=== PATIENT | male | born 1960 | race Caucasian/White ===

== ENCOUNTER 2016-10-17 21:14 | Emergency (ER) | payer OTHER ==
[~2016-10-17 21:14] MED LIST: CETIRIZINE; GLUCCHONDR PO; LORTAB10 PO; PERCOCET1 TA4 PO; PRILO PO; SUDAFED PE10 MG OR; SUDAFED PO; TRAZ100 PO; VASOTEC10 PO; [UNRECOGNIZED DRUG - OTHER]
[2016-10-17 21:41] LABS: BASOPHILS 0.1 %; BASOPHILS ABSOLUTE 0.02 10/3/uL (0.0-0.16); EOSINOPHILS 0.3 %; EOSINOPHILS ABSOLUTE 0.06 10/3/uL (0.0-0.53); ER CBC TAT 0 Hrs 05 Mins; HEMATOCRIT 44.2 % (40.0-51.0); HEMOGLOBIN 15.4 g/dL (13.6-17.8); IMMATURE GRANULOCYTES 0.3 %; IMMATURE GRANULOCYTES ABSOLUTE 0.05 10/3/uL (0.0-0.11); LYMPHOCYTES 7.2 %; LYMPHOCYTES ABSOLUTE 1.25 10/3/uL (0.67-4.30); MANUAL DIFF NO %; MEAN CORPUS HGB CONC 34.8 g/dL (32.0-36.0); MEAN CORPUSCULAR VOLUME 91.7 fL (80-100); MEAN PLATELET VOLUME 10.2 fL (9.2-13.0); MONOCYTES 5.3 %; MONOCYTES ABSOLUTE 0.91 10/3/uL (0.21-1.20); NEUTROPHILS 86.8 %; NEUTROPHILS ABSOLUTE 15.03 10/3/uL (2.02-8.40); PLATELET COUNT 288 10/3/uL (150-400); RBC DISTRIBUTION WIDTH 13.3 % (12.0-16.0); RED CELL COUNT 4.82 10/6/uL (4.7-6.1); WHITE BLOOD CELLS 17.3 10/3/uL (4.5-10.5)
[2016-10-17 21:53] LABS: ASCORBIC ACID (UR NOT ORDER) NEG (NEG); BILIRUBIN, URINE NEGATIVE (NEG); ER URINALYSIS TAT 0 Hrs 14 Mins; KETONE, URINE TRACE MG/DL (NEG); LEUKOCYTE ESTERASE(NOT OR NEG (NEG); NITRITE (URINE) NEG (NEG); WBC (NOT ORDERED) (RFLEX) 2 (0-5)
[2016-10-17 21:57] LABS: A/G RATIO 1.1 (0.7-1.9); ALBUMIN 3.9 G/DL (3.5-5.0); CALCIUM, SERUM 8.6 MG/DL (8.5-10.4); CHLORIDE, SERUM 105 MMOL/L (96-112); CO2 (CARBON DIOXIDE) 29 MMOL/L (24-34); GLOBULIN 3.5 G/DL (2.5-4.1); SGOT(AST) 28 U/L (5-40); SGPT(ALT) 43 U/L (5-65); SODIUM, SERUM 141 MMOL/L (135-148); TOTAL BILIRUBIN 0.5 MG/DL (0-1.2); TOTAL PROTEIN 7.4 G/DL (6.0-8.5)
[2016-10-17 21:58] LABS: ALKALINE PHOSPHATASE 142 U/L (45-117); BUN (BLOOD UREA NITROGEN) 21 MG/DL (6-23); CREATININE 1.87 MG/DL (0.70-1.30); GFR AFRICAN AMERICAN 45 ML/MIN (>=60); GFR NON AFRICAN AMERICAN 39 ML/MIN (>=60); GLUCOSE, SERUM 175 MG/DL (60-99)
[2016-10-18] MEDS ORDERED: NORCO1 TAB PO (19:41)
[2016-10-18] MEDS ORDERED: FLOMAX4 PO (19:42)
[2016-10-18] MEDS ORDERED: ZOFRAN4 PO (19:43)
[2016-10-18] MEDS ORDERED: NORV5 PO (19:44)
[2016-10-18] MEDS ORDERED: FORTAMET1000 MG PO (19:45)
[2016-10-18] MEDS ORDERED: BEN25 PO (19:45)
[2016-10-18] MEDS ORDERED: AT25 PO (19:46)
[2016-10-18] MEDS ORDERED: CYMBALTA30 PO (19:47)
[2016-10-18] MEDS ORDERED: TRAZODONE150 MG PO (19:47)
[2016-10-18] MEDS ORDERED: PRILO PO (19:47)
[2016-10-18] MEDS ORDERED: TYLENOL PM PO (19:50)
[2016-10-18] MEDS ORDERED: LINZESS 290 M290 MCG PO (19:51)
== END 2016-10-17 23:00 | disposition home or self-care (01) ==
LOC: ER 21:14
PROVIDERS: Nurse Practitioner
DX: N13.2 Hydronephrosis with renal and ureteral calculous obstruction (principal); D72.829 Elevated white blood cell count, unspecified; E11.65 Type 2 diabetes mellitus with hyperglycemia; I10 Essential (primary) hypertension; K21.9 Gastro-esophageal reflux disease without esophagitis; Z87.442 Personal history of urinary calculi; Z88.6 Allergy status to analgesic agent; Z79.899 Other long term (current) drug therapy
CPT/HCPCS: 74176; 80053; 81001; 85025; 96374; 99285; J1170; J2405

== ENCOUNTER 2016-10-18 19:50 | Inpatient (IN) | payer OTHER ==
--- NOTE | ~2016-10-18 | CN ---
Consultation Report [facility] [address] [place]. [address] NAME: SCOTTY TRUJILLO : 58 STATUS : ADM IN PAT#: [id number] AGE: 56 ADM/REG DATE : 10/18/16 MR#: [id number] REPORT SERV DATE: 10/19/16 DICTATED BY: NELLY ZAMAN DATE: 10/19/16 REPORT STATUS : Draft TRANSCRIBED BY: MODL DATE: 10/19/16 CONSULTATION DATE OF CONSULTATION: 10/19/2016 CHIEF COMPLAINT: Right flank pain. HISTORY OF PRESENT ILLNESS: Mr. Trujillo is a 56-year-old, who had acute onset of right flank pain on Friday. Seen in the emergency room and discharged to home. He was diagnosed with a small right distal ureteral stone. He has had nausea, vomiting, flank pain, poor appetite, and worsening difficulty with breathing. He came back to the emergency room extremely lethargic/unarousable. He does admit to feeling warm, but no fevers or chills. He is diabetic and has had poorly controlled blood sugar for the last week or so. PAST MEDICAL HISTORY: Diabetes, kidney stone, BPH, stroke, GERD, basal cell skin cancer removal. ALLERGIES: IBUPROFEN. SOCIAL HISTORY: , lives in [place], [place]. He smokes cigarettes. No alcohol or illicit drugs. 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 FAMILY HISTORY: No family history of malignancy. Strong family history of rheumatoid arthritis. HOME MEDICATIONS: Norvasc, Benadryl, Cymbalta, hydrocodone, hydroxyzine, Linzess, metformin, Prilosec, Flomax, and trazodone. PHYSICAL EXAMINATION: VITAL SIGNS: Blood pressure 127/84, temperature 97.4, pulse 81, respirations 16. GENERAL: Ill-appearing, 56-year-old, appearing older than stated age, in no acute distress. HEENT: Sclerae anicteric. LUNGS: Clear. HEART: Regular rhythm. CHEST: Clear anteriorly. He is wearing a non-rebreather with mildly labored breathing. ABDOMEN: Soft, nontender, and nondistended. No palpable mass. No rebound or guarding. Dsnp-hg-[id number] right CVA tenderness. No left CVA tenderness. : Testes normally descended bilaterally. No inguinal hernia. EXTREMITIES: No lower extremity edema. SKIN: No skin lesions. LABORATORY DATA: Voided urine shows red cells, rare bacteria. Negative nitrites or leukocytes. Procalcitonin is 11.5. Creatinine is 2.42 this morning, it was 1.8 two days ago at the ER, and it was 0.77 a month ago. Consultation Report [place] [id number] [place]. [address] NAME: SCOTTY TRUJILLO : 58 STATUS : ADM IN PAT#: [id number] AGE: 56 ADM/REG DATE : 10/18/16 MR#: [id number] REPORT SERV DATE: 10/19/16 DICTATED BY: NELLY ZAMAN DATE: 10/19/16 REPORT STATUS : Draft TRANSCRIBED BY: BONILLA DATE: 10/19/16 IMAGING: CT scan from last night shows large patchy infiltrates in right middle lobe, as well as persistent ehfammnj-ys-iojoai right hydroureteronephrosis with a ureterovesical junction calculus. No other stone seen. Small umbilical hernia, normal appendix. IMPRESSION: 1. Right ureteral stone. 2. Sepsis. 3. Pneumonia. 4. Acute kidney injury. PLAN: I have recommended proceeding to the operating for cystoscopy, right retrograde pyelogram, right ureter stent placement and stone removal, it is only if there is no grossly purulent urine in the kidney. Risks of bleeding, infection, need for 2nd procedure and pain from the postop stent was discussed. He will be admitted to the ICU or IMCU postop given his pulmonary status. DAE/BONILLA Nelly Zaman M.D. / [id number] CC: Nain Smyth MD
--- NOTE | ~2016-10-18 | CN ---
Consultation Report [facility] [address] [place]. [address] NAME: SCOTTY TRUJILLO : 58 STATUS : ADM IN [facility]#: [id number] AGE: 56 ADM/REG DATE : 10/18/16 MR#: [id number] REPORT SERV DATE: 10/19/16 DICTATED BY: ANAM GROVES IV DATE: 10/19/16 REPORT STATUS : Draft TRANSCRIBED BY: MODCristina DATE: 10/19/16 CRITICAL CARE CONSULTATION DATE OF CONSULTATION: 10/18/2016 Date evaluation, dictation, and transferred to the fruit and vegetable packer team is 10/18/2016. REASON FOR TRANSFER: Urosepsis with hypercapnic hypoxemic respiratory failure requiring BiPAP. HISTORY OF PRESENT ILLNESS: History was obtained from the records and from the patient. Mr. Trujillo is a 56-year-old male with a history of hypertension, depression, diabetes mellitus, cerebrovascular disease, reflux disease, and nephrolithiasis, who is now status post ureteral stent placement with preoperative hypotension responsive to fluids and hypercapnic hypoxemic respiratory failure. The patient developed right lower quadrant pain for which he presented to the emergency room. He was initially given some IV fluids and pain medications with improvement. The symptoms worsened particularly when he took some narcotic medications from his and became extremely lethargic. He was brought to the emergency room where he now had some pulmonary infiltrates with evidence for the kidney stone. His white count was now elevated. Urology was consulted and he underwent right ureteral stent with stone extraction. Blood gases demonstrated hypercapnia and hypoxemia for which he was placed on BiPAP. He required a very transient period of Adriel-Synephrine at the time of his surgical procedure by Anesthesiology. Currently, blood pressure is adequate though he remains somewhat lethargic now on BiPAP therapy with adequate oxygen saturations. The patient is not on bronchodilator medication nor is he on supplemental oxygen at home. He denies chronic cough, sputum production, fevers, chills, sweats, hemoptysis, and had no symptoms of a respiratory infection prior to presentation. The patient reportedly snores. His sleep is nonrestorative, and he complains of sedentary hypersomnolence. PULMONARY HISTORY: Remarkable for no history of childhood asthma, known adult obstructive lung disease, or previous pneumonia. He is a 56-eixn-jcsz smoker, having quit 5 years ago. He is up-to-date on the seasonal influenza vaccine. PAST MEDICAL HISTORY: 1. Hypertension. 2. Depression. 3. Diabetes mellitus. 4. Nephrolithiasis. 5. Cerebrovascular disease noted on CT scan. 6. Reflux disease. PAST SURGICAL HISTORY: 1. Right neck surgery. Consultation Report [place] [id number] [place]. [address] NAME: SCOTTY TRUJILLO : 58 STATUS : ADM IN [facility]#: [id number] AGE: 56 ADM/REG DATE : 10/18/16 MR#: [id number] REPORT SERV DATE: 10/19/16 DICTATED BY: ANAM GROVES IV DATE: 10/19/16 REPORT STATUS : Draft TRANSCRIBED BY: BONILLA DATE: 10/19/16 2. Skin cancer removal. 3. Left shoulder rotator cuff. ALLERGIES: THE PATIENT IS INTOLERANT OF IBUPROFEN. CURRENT MEDICATIONS: Desyrel 150 mg daily, Flomax 0.4 mg daily, heparin 5000 units q.8 hours, Levemir 8 units twice a day, level 3 insulin sliding scale, Protonix 40 mg daily, vancomycin per Pharmacy, and Zosyn 3.375 g q.8 hours. SOCIAL HISTORY: Remarkable for the previous tobacco use as above. There is no alcohol or illicit drug use. He is and has two children. FAMILY HISTORY: Remarkable for father with coronary artery disease, diabetes and unspecified cancer. Mother with stroke, diabetes, and unspecified cancer. Sibling with rheumatoid arthritis. REVIEW OF SYSTEMS: 14-systems reviewed. Pertinent positives as noted above. PHYSICAL EXAMINATION: GENERAL: This is a late middle-aged male, somewhat lethargic, appearing older than his stated age, in no distress on BiPAP. VITAL SIGNS: Temperature is 97.4, pulse is 90, respiratory rate is 24, saturations are 99% on BiPAP at 60%, and blood pressure 127/84. HEENT: The patient is normocephalic, atraumatic. Extraocular movements are intact. Pupils react to light. Sclerae and conjunctivae normal. He has a Mallampati III airway with poor dentition with missing teeth and gingival disease. NECK: Without any palpable lymphadenopathy or thyromegaly. He has surgical scars noted. CHEST: The patient has some inspiratory crackles at both bases. There is a prolonged expiratory phase with some scattered rhonchi that improved with cough. No true wheezes are noted. CARDIOVASCULAR: Jugular venous pulsations appear to be approximately 7 cm. He has 2+ carotid upstrokes. No obvious bruit. He has a regular distant S1, S2 with no clear murmur or S3. Peripheral pulses are diminished. ABDOMEN: Soft and nontender. There are hypoactive bowel sounds. There is no palpable hepatosplenomegaly or masses. GENITOURINARY: The patient has normal male external genitalia. Jeong catheter in place. EXTREMITIES: Demonstrate no cyanosis, clubbing, edema, or palpable cords. NEUROLOGIC: The patient currently is able to move all extremities. Strength is 5/5 and sensation intact to light touch. LABORATORY DATA: Chest x-ray demonstrates patchy infiltrates, right greater than left that were present on the film though not on a film from 2013. CBC: Hemoglobin 12.7, hematocrit 37.6, platelet count was 212,000, white cell count is 8.8. Consultation Report [address] [place]. [address] NAME: SCOTTY TRUJILLO : 58 STATUS : ADM IN [facility]#: [id number] AGE: 56 ADM/REG DATE : 10/18/16 MR#: [id number] REPORT SERV DATE: 10/19/16 DICTATED BY: ANAM GROVES IV DATE: 10/19/16 REPORT STATUS : Draft TRANSCRIBED BY: BONILLA DATE: 10/19/16 INR is 1.3, PTT is 37.5, procalcitonin level 11.5. Sodium is 145, potassium 4.3, chloride 110, bicarbonate 17, BUN 37, creatinine 2.42, glucose of 138, magnesium is 1.9. Troponin is 0.26. Blood gas shows pH 7.34, pCO2 of 41, pO2 of 93, with a previous pCO2 of 53. ASSESSMENT/PLAN: 1. Infectious Disease. The patient likely has urosepsis as the cause for his hypotension. He will remain on his broad coverage with Zosyn and vancomycin and pending culture results. Procalcitonin level is significantly elevated. Repeat urinalysis and culture have been sent. 2. Cardiovascular. The patient will be given IV fluids, would be decreased with more than 3 L positive at this time. Levophed could be started if required. BNP was not elevated. There is an insignificant bump in the troponin with no ischemic symptoms. 3. Respiratory. The patient may have some underlying chronic obstructive pulmonary disease. This is likely drug related with use of the narcotics. He will be given BiPAP overnight and as needed. He clinically has obstructive sleep apnea and will require an outpatient sleep evaluation. I will put him on DuoNebs while awake with Pulmicort and Brovana for now with a possible component of chronic obstructive pulmonary disease with his previous tobacco use. 4. Endocrinologic. Cortisol level will be obtained with the hypotension. He will be given low-dose Levemir with insulin sliding scale. Thyroid functions will be obtained with the hypercapnia. 5. Neurologic. Dilaudid will be added for pain management. 6. Renal. Will be given 1 g of magnesium and phosphate level will be obtained. 7. Hematologic. The patient's hemoglobin and hematocrit were both adequate and heparin will be given for deep vein thrombosis prophylaxis. Thank you for consulting us. We will follow the patient in the ICU with the Critical Care Service providing primary responsibilities at this time. MINDY/BONILLA Anam Groves IV, M.D. / [id number] CC: MD Etelvina Mcgraw D.O. F.A.C.P.
--- NOTE | ~2016-10-18 | OP ---
Record Of Operation [place] [facility] [id number] [place]. [address] NAME: SCOTTY TRUJILLO : 58 STATUS : ADM IN [facility]#: [id number] AGE: 56 ADM/REG DATE : 10/18/16 MR#: [id number] REPORT SERV DATE: 10/19/16 DICTATED BY: NELLY ZAMAN DATE: 10/19/16 REPORT STATUS : Draft TRANSCRIBED BY: MODL DATE: 10/19/16 DATE OF PROCEDURE: 10/19/2016 PREOPERATIVE DIAGNOSES: 1. Right ureteral stone. 2. Sepsis. POSTOPERATIVE DIAGNOSES: 1. Right ureteral stone. 2. Sepsis. PROCEDURE PERFORMED: 1. Cystoscopy with right retrograde pyelogram. 2. Right ureteroscopy with stone extraction. 3. Right ureter stent placement. SURGEON: Nelly Zaman M.D. ANESTHESIA: General. COMPLICATIONS: None. DRAINS: Jeong catheter, right ureter stent. SPECIMENS: Right ureteral stone for analysis. ANESTHESIA: General. ESTIMATED BLOOD LOSS: Minimal. INDICATIONS: Harini is a 56-year-old with several days of severe right flank pain. Two separate CT scan show an obstructing right distal ureteral stone. He was admitted through the ER last night with sepsis. He appears to have pneumonia, UTI, and ureteral stone as well. Additionally, his creatinine has risen from baseline of 0.7 up to 2.5. He was brought to the operating room for ureteral stent placement. I proceeded with stone extraction as this was technically feasible and there was not grossly purulent urine behind the stone. TECHNIQUE: Informed consent was obtained. He was brought to the operating room, general anesthesia was administered. Genitals and perineum were prepped and draped in the lithotomy position. Rigid cystoscopy was performed. The urethra was normal. The prostate was nonobstructive. There was copious sediment in the bladder. No tumors or stones in the bladder. Clear efflux on the left. Sluggish purulent efflux on the right. There was a small calcification over the expected course of the right distal ureter. Retrograde pyelogram was performed on the right. There was mild right hydroureteronephrosis to the distal ureter to the ureterovesical junction where the faintly calcified stone was within Record Of Operation [place] [id number] [facility] [place]. [address] NAME: SCOTTY TRUJILLO : 58 STATUS : ADM IN PAT#: [id number] AGE: 56 ADM/REG DATE : 10/18/16 MR#: [id number] REPORT SERV DATE: 10/19/16 DICTATED BY: NELLY ZAMAN DATE: 10/19/16 REPORT STATUS : Draft TRANSCRIBED BY: BONILLA DATE: 10/19/16 the ureter. A 0.038 straight Glidewire was passed beyond the stone. The cystoscope was removed. I calibrated the ureter to 9.5-Spanish with the inner trocar of a ureteral access sheath. Following this, a rigid ureteroscope was advanced. The right ureter was cannulated. I identified the stone. I removed the wire. A ZeroTip basket was passed. The stone was basketed and extracted atraumatically. Retrograde pyelogram was repeated. The ureter measured 26 cm there was no extravasation. Hydronephrosis persisted. I placed a 6-Spanish, 26 cm right double-J ureteral stent. The dangling string was externalized and secured to the penis with Tegaderm. The Jeong catheter was then placed. He was taken to the recovery room and extubated there after placement onto BiPAP. He is admitted to the ICU for postop care given his respiratory insufficiency, sepsis, and acute kidney injury. [facility]/BONILLA Nelly Zaman M.D. / [id number] CC: MD Etelvina Mcgraw D.O. F.A.C.P.
--- NOTE | ~2016-10-18 | IDS ---
Interim Discharge Summary [facility] [address] [place]. [address] NAME: SCOTTY TRUJILLO : 58 STATUS : ADM IN PAT#: [id number] AGE: 56 ADM/REG DATE : 10/18/16 MR#: [id number] REPORT SERV DATE: 10/23/16 DICTATED BY: MARTHA COX DATE: 10/23/16 REPORT STATUS : Draft TRANSCRIBED BY: MODL DATE: 10/23/16 ADMISSION DATE: 10/18/2016 DISCHARGE DATE: HOSPITAL COURSE: 1. The patient was seen by the Critical Care Service on 10/19. The patient was transferred secondary to urosepsis with hypercapnic-hypoxic respiratory failure and required BiPAP. He has a known history of hypertension, depression, diabetes mellitus, previous CVA, and nephrolithiasis and required placement of a right ureteral J stent by Dr. Roach. His white cell count was elevated, and he had pulmonary infiltrates upon admission and during the procedure of placement of the J stent, the patient required transient Adriel-Synephrine. After the procedure, his blood pressure remained adequate. However, he was lethargic and required BiPAP and had significant hypoxemia. Since that time, the patient has been improving daily and continues on Zosyn and vanco. His blood and urine cultures are negative. His x-ray is slowly improving and he still is in need of Vapotherm, but we are able to wean his FiO2 slowly and so he would be stable to go to a monitored bed on [address] [place] [address], where they are familiar with Vapotherm. We will also ask Pulmonary to follow while the patient is on the floor. 2. Diabetes mellitus, on sliding insulin scale and Levemir. 3. Encephalopathy, improved. 4. DEEJAY, resolved. 5. History of smoking 35 years, stopped five years ago, on bronchodilator protocol. 6. History of hypertension. Blood pressure has been stable. 7. Remote history of CVA, no new events during this hospitalization. 8. DVT prophylaxis during this hospitalization has been with heparin subcu q.8. 9. GI prophylaxis is with Protonix. 10.Procalcitonin has been followed and is slowly decreasing and one has been ordered for the morning of 10/24. 11.The patient has been on Zosyn day four and vancomycin day five, we will continue for now. The patient is in stable condition to transfer to the floor. Hospitalist Service will follow on the floor. 12.The patient had an echocardiogram that showed mild diastolic dysfunction, no valvular disease, and ejection fraction of 50%. /MODL Martha Cox M.D. / [id number] CC: Maria Guadalupe Shah D.O. F.A.C.P.
--- NOTE | ~2016-10-18 | HP ---
History And Physical [place] [id number] [facility] [place]. [address] NAME: SCOTTY TRUJILLO : 58 STATUS : ADM IN PAT#: [id number] AGE: 56 ADM/REG DATE : 10/18/16 MR#: [id number] REPORT SERV DATE: 10/18/16 DICTATED BY: NATALIE ZHENG DATE: 10/18/16 REPORT STATUS : Draft TRANSCRIBED BY: MODL DATE: 10/18/16 DATE OF ADMISSION: 10/18/2016 CHIEF COMPLAINT: A 56-year-old male presenting with unresponsiveness, evidence of pneumonia. HISTORY OF PRESENTING ILLNESS: The patient's history was obtained through careful interview with the patient and , coupled with review of [facility] and [facility] medical records. The patient came home from work early on 10/16/2016 having new-onset back and abdominal pain. He took one of his 's hydrocodone. Then by 10/17/2016, the patient had nausea, vomiting, and a very poor appetite. He came to the emergency department on the night prior to this admission, had a scan done that showed a 3-mm right-sided kidney stone causing moderate hydronephrosis, but was already feeling better in the emergency department and so was sent home and was considered stable condition. Then today, the patient was extremely lethargic. He slept almost the entirety of the day and then by the late afternoon, the patient was unarousable according to the and finally when they were able to get him to wake up, he was incoherent, disoriented, and quite delirious. He describes right-sided and right flank pain, aching quality, yesterday was up to a 20/10 severity, but today it has improved only to about a 2/10 severity and sometimes is not present at all. His nausea and vomiting have resolved as well. Surprisingly, the patient has no shortness of breath, no chest pain, no cough. He does feel as if his mouth is very dry. He has felt "warm" all day, but has had no fevers or chills. For about a week or two, the patient has had increasing blood sugars mostly over 200 and before that, they have been more easily controlled. REVIEW OF SYSTEMS: Otherwise 14-point review of systems was obtained and was negative. PAST MEDICAL HISTORY: 1. Diabetes. 2. Nephrolithiasis with right hydronephrosis, 10/17/2016. 3. Benign prostatic hypertrophy. 4. Stroke seen on CT scan tonight, an old stroke in the right frontal region in the right basal ganglia. 5. Gastroesophageal reflux disorder. 6. No cardiac disease. No lung disease. PAST SURGICAL HISTORY: History And Physical [address] [place]. [address] NAME: SCOTTY TRUJILLO : 58 STATUS : ADM IN PAT#: [id number] AGE: 56 ADM/REG DATE : 10/18/16 MR#: [id number] REPORT SERV DATE: 10/18/16 DICTATED BY: NATALIE ZHENG DATE: 10/18/16 REPORT STATUS : Draft TRANSCRIBED BY: BONILLA DATE: 10/18/16 1. Right neck mass removal, 2013. 2. Basal cell carcinoma skin cancer removals. 3. Left shoulder surgery. ALLERGIES: IBUPROFEN. SOCIAL HISTORY: to his in 1979. They have two children. They live in [place], [place]. He smokes cigarettes. Does not drink alcohol. 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 He has been working extended hours recently six to seven days per week. FAMILY HISTORY: Mother and father with cancer. Father with heart disease and diabetes. Mother with stroke and diabetes. Mother and sibling with rheumatoid arthritis. CURRENT MEDICATIONS: Include Norvasc 5 mg p.o. daily, Benadryl, Tylenol PM, Cymbalta 30 mg p.o. nightly, hydrocodone p.r.n., hydroxyzine, Linzess 290 mcg p.o. daily, metformin 1000 mg p.o. daily, Prilosec 20 mg p.o. daily, Zofran, Flomax 0.4 mg p.o. daily, trazodone 150 mg p.o. daily. PHYSICAL EXAMINATION: VITAL SIGNS: Temperature 98.5, pulse 107, blood pressure 87/70. After 1 L normal saline bolus, the patient's blood pressure has improved to 120/74, respiratory rate 13, O2 saturation 77% on room air. GENERAL: A pleasant, cooperative male, but at the time I am evaluating him, he has a nontoxic appearance. He is just very tired and weak looking, but is in no evidence of distress. HEENT: Pupils equal, round, and reactive to light. No conjunctival pallor. No scleral icterus. Nares are patent. Oropharynx is clear of obstruction. Moist mucous membranes. NECK: Trachea midline. No thyromegaly. LYMPH: No cervical lymphadenopathy. No supraclavicular lymphadenopathy. RESPIRATORY: The patient has scattered rhonchi on exam, but not too severe. No wheezes. I do not appreciate focal egophony. No rales. The patient has a nonlabored respiratory effort. CARDIOVASCULAR: Tachycardic, regular rhythm. No murmurs, rubs, or gallops. No extremity edema is appreciated. ABDOMEN: Soft, nontender, nondistended. Normal bowel sounds auscultated throughout. No hepatosplenomegaly. DERMATOLOGICAL: Warm and dry extremities. No pallor. No cyanosis. PSYCHIATRIC: Normal affect. Good mood. He is still very lethargic, but easily aroused to vocal stimuli and is oriented x3. LABORATORY DATA: White blood count 16.6, hemoglobin 15, hematocrit 44, platelets 282. Sodium 143, potassium 4.8, chloride 105, bicarb 26, BUN 33, creatinine 2.82 from baseline creatinine of 0.7, glucose 243. Urinalysis shows 35 red blood cells, 7 white blood cells, 5 hyaline casts. Lactic acid is elevated at 5.3. INR 1.2. Liver enzymes within normal limits. Initial ABG demonstrates a pH 7.25, a PaCO2 of 52, a PaO2 of 91, a bicarb of 22 on 100% nonrebreather. History And Physical [address] [address] NAME: SCOTTY TRUJILLO : 58 STATUS : ADM IN [facility]#: [id number] AGE: 56 ADM/REG DATE : 10/18/16 MR#: [id number] REPORT SERV DATE: 10/18/16 DICTATED BY: NATALIE ZHENG DATE: 10/18/16 REPORT STATUS : Draft TRANSCRIBED BY: BONILLA DATE: 10/18/16 STUDIES: 1. Chest x-ray by my own evaluation shows diffuse bilateral pulmonary infiltrates. 2. EKG by my own evaluation shows sinus tachycardia. 3. CT scan of the brain without contrast shows chronic stroke changes, but nothing acute. ASSESSMENT AND PLAN: 1. Severe sepsis with shock. Lactic acid of 5.3. Acute renal failure. Hypoxia. White blood cell count of 16.6. Tachycardia and shock. We will check blood cultures. Place on broad IV antibiotics including IV vancomycin and IV cefepime. The patient's blood pressure stabilized after first liter normal saline bolus. 2. Bilateral pneumonia. Check blood cultures. Place on IV antibiotics. 3. Hypoxic and hypercapnic respiratory failure. We will try BiPAP overnight. Follow ABG and provide supportive care. 4. Acute renal failure. Place on IV fluids. 5. Hydronephrosis with nephrolithiasis, but his symptoms seem to have completely resolved today. I would like to check a CT scan of the abdomen and pelvis this evening and consider Urology consult. Place Jeong catheter. 6. Uncontrolled diabetes. Check hemoglobin A1c. While the patient is so sick, we will start basal insulin Levemir and sliding scale insulin. KPL/MODL Natalie Zheng M.D. / [id number] CC: MD Etelvina Mcgraw D.O. F.A.C.P.
--- NOTE | ~2016-10-18 | CN ---
Consultation Report [place] [id number] [place]. [address] NAME: SCOTTY TRUJILLO : 58 STATUS : ADM IN PAT#: [id number] AGE: 56 ADM/REG DATE : 10/18/16 MR#: [id number] REPORT SERV DATE: 10/19/16 DICTATED BY: ANAM GROVES IV DATE: 10/19/16 REPORT STATUS : Draft TRANSCRIBED BY: BONILLA DATE: 10/19/16 DATE OF CONSULTATION: ADDENDUM Critical care time seen is 50 minutes. MINDY/BONILLA Anam Groves IV, M.D. / [id number] CC: MD Etelvina Mcgraw D.O. F.A.C.P.
--- NOTE | ~2016-10-18 | DS ---
Discharge Summary [place] [address] [place]. [address] NAME: SCOTTY SCHULER : 58 STATUS : DIS IN PAT#: [id number] AGE: 56 ADM/REG DATE : 10/18/16 MR#: [id number] REPORT SERV DATE: 10/30/16 DICTATED BY: ZORAN BEAVER DATE: 10/29/16 REPORT STATUS : Draft TRANSCRIBED BY: BONILLA DATE: 10/29/16 ADMISSION DATE: 10/18/2016 DISCHARGE DATE: 10/29/2016 DIAGNOSES: 1. Acute hypoxic respiratory failure. 2. Sepsis with urinary tract infection. 3. Pneumonia. 4. Hydronephrosis with nephrolithiasis, status post right stone extraction with double-J stent placement, which also has been removed. 5. A history of type 2 diabetes. 6. History of hypertension. FOLLOWUP: 1. The patient should follow up with the primary care physician, Dr. Roosevelt Weir, in one to two weeks and to follow up with the Pulmonary service, per Pulmonary orders, and to follow up with Jennifer Paiz, nurse practitioner with Dr. Groves in two weeks. 2. The patient should follow up with Dr. Roach, urologist, in two to three weeks. DISCHARGE MEDICATIONS: Amlodipine 5 mg p.o. q.h.s., Prilosec 20 mg p.o. q.h.s., Flomax 0.4 mg p.o. q.h.s., trazodone 150 mg p.o. q.h.s., Spiriva inhaled daily, Zofran 4 mg p.o. q.6 hours p.r.n., metformin ER 1000 mg p.o. q.h.s., diphenhydramine 25 mg p.o. q.h.s. p.r.n., Atarax 50 mg p.o. b.i.d. p.r.n., Cymbalta 30 mg p.o. q.h.s., Symbicort 160/4.5 two puffs inhaled b.i.d., albuterol MDI two puffs inhaled every four hours. HOSPITALIST: 1. Dr. Duke Jodran. 2. Nurse practitioner: Karla Albert. 3. Dr. Andre. 4. Dr. Beaver. CONSULTANTS: Dr. Roach, Urology. Pulmonary, Dr. Angel. Also, Critical Care, Dr. Lara Cox and Dr. Keshav Leiva. HOSPITAL COURSE: Please see H and P dictated by Dr. Duke Jordan. A 56-year-old male with a past medical history of hypertension, type 2 diabetes, and nephrolithiasis, presented with a severe lethargy and hypoxia according to the , and the patient returned to home early after having new onset back pain and abdominal discomfort, came to the emergency department, found to have renal stone and released to home. However, after taking his 's narcotic medications for pain, the patient developed some nausea and vomiting and later began to sleep for the majority of the day and hard to arouse, but when was arousable, the patient was confused and still lethargic. He was seen in the emergency department found to have some hypotension and signs of sepsis with lactic acid of 5.3, white cell count of 16.6, and a blood pressure was 87/70 which responded to a liter bolus of normal saline, improved to 120/74. The patient was also noted to be hypoxic 77% on room air requiring BiPAP. The Discharge Summary [address] [address] NAME: SCOTTY SCHULER : 58 STATUS : DIS IN PAT#: [id number] AGE: 56 ADM/REG DATE : 10/18/16 MR#: [id number] REPORT SERV DATE: 10/30/16 DICTATED BY: ZORAN BEAVER DATE: 10/29/16 REPORT STATUS : Draft TRANSCRIBED BY: BONILLA DATE: 10/29/16 patient was initially admitted to the Hospitalist Service and initially seen by Dr. Duke Jordan, and the patient remained on oxygen supplementation and found to have signs of bilateral pneumonia. He was seen by urologist, Dr. Roach, who sent the patient to the OR the following day for cystoscopy and stone extraction with right ureter stent placement. However, postop the patient did require management in ICU and remained on BiPAP, also remained on IV antibiotics since admission for sepsis with broad-spectrum antibiotics with vancomycin and Zosyn and also being treated for hypercapnic hypoxic respiratory failure. The patient continued to improve, but had slow progression and eventually required Vapotherm due to high O2 requirements. It was suspected the patient became septic from multiple events, one secondary to urologic issues as well as a possible aspiration event from the patient's nausea and vomiting while at home which developed an aspiration pneumonia and an ARDS like picture. The patient was eventually transferred out of the ICU to a cardiac telemetry floor and placed back onto the Hospitalist Service. The patient continued to improve and also continued to be followed by Pulmonary Service with Dr. Groves and Lloyd WAYNE. At the time of discharge, the patient was completely on room air saturating greater than 92% on room air at rest and with ambulation. Also, continued to improve. Also, the patient had some ureteral stent, also was removed, per Urology orders. Also, the patient completed his antibiotics during this hospital course and completed a 10-day course of antibiotics. I attended care for Mr. Schuler initiating on 10/29/2016, for which at that time, the patient was ready for discharge. Remained clinically and hemodynamically stable. O2 sats within normal limits. Also, Pulmonary had signed off and approved for discharge to home. Also, a case for discharge by Urology. The patient and also were educated on refraining from any sedatives including narcotic after discharge, to continue with nebulizers and to return for any recurrent symptoms. This discharge required greater than 35 minutes. DICTATED BY: Maria Guadalupe Shankar/BONILLA Zoran Beaver M.D. / [id number] CC: Maria Guadalupe Shankar D.O. F.A.C.P. Nathan Mull IV, M.D. John C House, M.D.
--- NOTE | ~2016-10-18 | IDS ---
Interim Discharge Summary [facility] [address] [place]. [address] NAME: SCOTTY TRUJILLO : 58 STATUS : ADM [facility]#: [id number] AGE: 56 ADM/REG DATE : 10/18/16 MR#: [id number] REPORT SERV DATE: 10/28/16 DICTATED BY: DATE: REPORT STATUS : Draft TRANSCRIBED BY: MODL DATE: 10/28/16 ADMISSION DATE: 10/18/2016 DISCHARGE DATE: DISCHARGE DATE: Pending successful Vapotherm wean. Interim summary covers dates of service between 10/23/2016 and 10/28/2016. CONSULTATIONS: 1. Dr. Danelle Angel, Pulmonology. 2. Dr. Roach, Urology. INTERIM DIAGNOSES: 1. Acute respiratory distress syndrome, presumed. 2. Urosepsis, resolved. 3. Type 2 diabetes. 4. Chronic hypertension. PERTINENT TEST AND PROCEDURES: 1. TTE, 10/21/2016. Summary: Low normal left ventricular systolic function with ejection fraction of 50%. Dilated both sided structures. Mild diastolic dysfunction. Normal right ventricular chamber size and systolic function. No evidence of significant valvular regurgitation or stenosis. 2. Cystoscopy with right retrograde pyelogram with right stone extraction and placement of right double-J ureter stent, 10/19/2016. 3. Serial chest x-rays, most recent occurring between the dates of 10/21/2016 and 10/28/2016. Chest x-ray obtained this morning reported right upper lobe infiltrate and linear opacities in the left perihilar region, unchanged, vasculature remains mildly prominent. HOSPITAL COURSE: Please refer to history and physical dated 10/18/[address] Duke Jordan for complete details pertaining to the patient's initial presentation upon admission. Please also refer to interim discharge dated 10/23/[address] Lara Cox, founder ceo & president for details, occurring between dates of service 10/18/2016 through 10/23/2016. Briefly, the patient is a 56-year-old male, who presented with unresponsiveness and evidence of pneumonia on 10/18/2016. Initial workup included diagnosis of severe sepsis with shock. Sources for consideration of infection included possible bilateral pneumonia and hydronephrosis with nephrolithiasis. Urology was consulted for evaluation and surgical recommendation. The patient underwent cystoscopy with right ureter stone extraction and right double-J stent placement on 10/19/2016. The patient responded well to treatment and is now urinating without difficulty. Status post Jeong catheter removal. Stent should be removed during this admission. Interim Discharge Summary [place] [id number] [place]. [address] NAME: SCOTTY TRUJILLO : 58 STATUS : ADM IN PAT#: [id number] AGE: 56 ADM/REG DATE : 10/18/16 MR#: [id number] REPORT SERV DATE: 10/28/16 DICTATED BY: DATE: REPORT STATUS : Draft TRANSCRIBED BY: MODL DATE: 10/28/16 Initially, it was presumed that the patient also had bilateral pneumonia based on chest x- ray results, but now likely diagnosis is acute respiratory distress syndrome secondary to septic shock. The patient is still Vapotherm dependent, but is weaning slowly with success. 1. Acute respiratory distress syndrome, presumed this is likely related to sepsis upon admission. Repeat chest x-ray today showed persistent right upper lobe infiltrate and linear opacities in the left perihilar regions unchanged. Pulmonology has been following daily to assist with Vapotherm wean. The patient has remained afebrile. White blood count has normalized and procalcitonin is now within normal limits. We will check BNP today and diurese if concerned for volume overload. Continue inhalers and nebulizers per Pulmonology management. 2. Urosepsis was secondary to right obstructing ureteral stone. The patient is status post double-J stent placement on 10/19/2016. Per review of Urology records, the patient was supposed to follow up outpatient last Friday for double-J stent removal. Urology was contacted and advised that the patient was not discharged to home. Urology is expected to round during this admission for removal of double-J stent prior to discharge. The patient's Jeong catheter was removed several days ago and he is urinating without difficulty. 3. Type 2 diabetes. The patient's blood glucose is well controlled on current insulin regimen. Resume metformin upon discharge. 4. Chronic hypertension. The patient's blood pressure is stable. Home calcium channel cecy was added back after sepsis was resolved. 5. Mild hypokalemia. Potassium was 3.6 today, we will replete per protocol. DISPOSITION: 1. Awaiting call or rounding from Urology to determine plan for double J-stent removal. Per review of Urology records, stent should have been removed outpatient last Friday. It appears Urology was unaware that the patient's hospital stay was extended due to slow Vapotherm wean. 2. Discharge to home. Once successful wean off Vapotherm. The patient will require trial of ambulation on room air to evaluate for supplemental home oxygen needs. SOL/BONILLA BETTINA Brown / [id number] CC: Maria Guadalupe Shah D.O. F.A.C.P.
[2016-10-18 18:47] LABS: BASOPHILS 0.1 %; BASOPHILS ABSOLUTE 0.01 10/3/uL (0.0-0.16); EOSINOPHILS 0 %; ER CBC TAT 0 Hrs 09 Mins; HEMATOCRIT 43.6 % (40.0-51.0); HEMOGLOBIN 14.6 g/dL (13.6-17.8); IMMATURE GRANULOCYTES 0.2 %; IMMATURE GRANULOCYTES ABSOLUTE 0.04 10/3/uL (0.0-0.11); LYMPHOCYTES 4.8 %; LYMPHOCYTES ABSOLUTE 0.79 10/3/uL (0.67-4.30); MEAN CORPUS HGB CONC 33.5 g/dL (32.0-36.0); MEAN CORPUSCULAR HEMOGLOB 31.7 pg (26.0-34.0); MEAN PLATELET VOLUME 10.7 fL (9.2-13.0); MONOCYTES 4.9 %; MONOCYTES ABSOLUTE 0.82 10/3/uL (0.21-1.20); NEUTROPHILS ABSOLUTE 14.92 10/3/uL (2.02-8.40); PLATELET COUNT 282 10/3/uL (150-400); RBC DISTRIBUTION WIDTH 13.7 % (12.0-16.0); RED CELL COUNT 4.61 10/6/uL (4.7-6.1); WHITE BLOOD CELLS 16.6 10/3/uL (4.5-10.5)
[2016-10-18 18:50] LABS: MANUAL DIFF NO %; MEAN CORPUSCULAR VOLUME 94.6 fL (80-100)
[2016-10-18 18:58] LABS: INTERNATIONAL NORMAL RATI 1.2 UNITS (-); PARTIAL THROMBO TIME 29.5 SEC (22.5-37.2); PROTIME (NOT ORD) 15.2 SEC (12.0-14.5)
[2016-10-18 19:03] LABS: A/G RATIO 0.9 (0.7-1.9); ALBUMIN 3.3 G/DL (3.5-5.0); ALKALINE PHOSPHATASE 118 U/L (45-117); BUN (BLOOD UREA NITROGEN) 33 MG/DL (6-23); CALCIUM, SERUM 8.2 MG/DL (8.5-10.4); CHLORIDE, SERUM 105 MMOL/L (96-112); CO2 (CARBON DIOXIDE) 26 MMOL/L (24-34); CREATININE 2.82 MG/DL (0.70-1.30); GFR AFRICAN AMERICAN 28 ML/MIN (>=60); GFR NON AFRICAN AMERICAN 24 ML/MIN (>=60); GLOBULIN 3.5 G/DL (2.5-4.1); GLUCOSE, SERUM 243 MG/DL (60-99); POTASSIUM, SERUM 4.8 MMOL/L (3.5-5.3); SGOT(AST) 25 U/L (5-40); SGPT(ALT) 35 U/L (5-65); SODIUM, SERUM 143 MMOL/L (135-148); TOTAL BILIRUBIN 0.4 MG/DL (0-1.2); TOTAL PROTEIN 6.8 G/DL (6.0-8.5)
[2016-10-18 19:08] LABS: ASCORBIC ACID (UR NOT ORDER) NEG (NEG); BILIRUBIN, URINE NEGATIVE (NEG); ER URINALYSIS TAT 0 Hrs 21 Mins; KETONE, URINE NEGATIVE (NEG); LEUKOCYTE ESTERASE(NOT OR NEG (NEG); NITRITE (URINE) NEG (NEG); WBC (NOT ORDERED) (RFLEX) 7 (0-5)
[2016-10-18 19:09] LABS: LACTATE 5.3 MMOL/L (0.3-2.4)
[2016-10-18 19:11] LABS: BE (BASE EXCESS) -5.3 MEQ/L (0 +/- 2.5); HCO3 (ACTUAL BICARBONATE) 22.4 MEQ/L (23-27); HEMOBLOGIN CONTENT 14.7 G/DL (14-18); INSTRUMENT SERIAL # 8087; METHEMOGLOBIN 0.2 % (0-3); O2 CONTENT 19.5 VOL% (18-24); OPERATOR ID 14335; PCO2 (CO2 TENSION) 52 MMHG (35-45); PO2 (O2 TENSION) 91 MMHG (79-93); SAMPLE Arterial; pH 7.25 (7.37-7.43)
[2016-10-18 19:12] LABS: ALLENS TEST Pos; DEVICE NRB
[2016-10-18 19:33] LABS: AMPHETAMINES (NOT ORD) NEG (NEG); BARBITURATES (NOT ORDERED NEG (NEG); BENZODIAZEPINES (NOT ORD) NEG (NEG); CANNABINOIDS (THC) NEG (NEG); COCAINE (NOT ORDERED) NEG (NEG); OPIATES POS (NEG); PHENCYCLIDINE(PCP) NEG (NEG); TRICYCLICS POS (NEG)
[~2016-10-18 19:50] MED LIST changes: +AT25 PO; +BEN25 PO; +CYMBALTA30 PO; +FLOMAX4 PO; +FORTAMET1000 MG PO; +NORCO1 TAB PO; +NORV5 PO; +TRAZODONE150 MG PO; +TYLENOL PM PO; +ZOFRAN4 PO
[2016-10-18] MEDS ORDERED: LINZESS 290 M290 MCG PO (19:51)
[2016-10-18 20:20] LABS: PROCALCITONIN 17.93 ng/mL (<0.5)
[2016-10-18 20:30] LABS: ACETAMINOPHEN LEVEL (TYLENOL) < 2.0 MCG/ML (10.0-20.0); SALICYLATE < 1.7 MG/DL (-)
[2016-10-18 20:31] LABS: ALCOHOL < 10 MG/DL (0)
[2016-10-19 01:58] LABS: BE (BASE EXCESS) -2.6 MEQ/L (0 +/- 2.5); BIPAP 14/5 cm.H2O; CARBOXYHEMOGLOBIN 0.2 % (0-3); HCO3 (ACTUAL BICARBONATE) 24.7 MEQ/L (23-27); HEMOBLOGIN CONTENT 13.3 G/DL (14-18); INSTRUMENT SERIAL # 35151; METHEMOGLOBIN 0.5 % (0-3); O2 CONTENT 16.8 VOL% (18-24); PCO2 (CO2 TENSION) 53 MMHG (35-45); PO2 (O2 TENSION) 64 MMHG (79-93); SAMPLE Arterial; pH 7.29 (7.37-7.43)
[2016-10-19 06:04] LABS: BASOPHILS 0 %; EOSINOPHILS 0.1 %; EOSINOPHILS ABSOLUTE 0.01 10/3/uL (0.0-0.53); HEMOGLOBIN 12.7 g/dL (13.6-17.8); IMMATURE GRANULOCYTES 0.1 %; IMMATURE GRANULOCYTES ABSOLUTE 0.01 10/3/uL (0.0-0.11); LYMPHOCYTES 8.5 %; LYMPHOCYTES ABSOLUTE 0.75 10/3/uL (0.67-4.30); MEAN CORPUS HGB CONC 33.8 g/dL (32.0-36.0); MEAN CORPUSCULAR HEMOGLOB 31.1 pg (26.0-34.0); MEAN CORPUSCULAR VOLUME 92.2 fL (80-100); MEAN PLATELET VOLUME 10.5 fL (9.2-13.0); MONOCYTES 6.6 %; MONOCYTES ABSOLUTE 0.58 10/3/uL (0.21-1.20); NEUTROPHILS 84.7 %; NEUTROPHILS ABSOLUTE 7.43 10/3/uL (2.02-8.40); PLATELET COUNT 212 10/3/uL (150-400); RBC DISTRIBUTION WIDTH 13.5 % (12.0-16.0); RED CELL COUNT 4.08 10/6/uL (4.7-6.1)
[2016-10-19 06:08] LABS: HEMATOCRIT 37.6 % (40.0-51.0); MANUAL DIFF NO %; WHITE BLOOD CELLS 8.8 10/3/uL (4.5-10.5)
[2016-10-19 06:17] LABS: INTERNATIONAL NORMAL RATI 1.3 UNITS (-); PROTIME (NOT ORD) 16.5 SEC (12.0-14.5)
[2016-10-19 06:18] LABS: PARTIAL THROMBO TIME 37.5 SEC (22.5-37.2)
[2016-10-19 06:19] LABS: A/G RATIO 0.8 (0.7-1.9); ALBUMIN 2.7 G/DL (3.5-5.0); ALKALINE PHOSPHATASE 95 U/L (45-117); BUN (BLOOD UREA NITROGEN) 37 MG/DL (6-23); CALCIUM, SERUM 7.7 MG/DL (8.5-10.4); CHLORIDE, SERUM 110 MMOL/L (96-112); CO2 (CARBON DIOXIDE) 27 MMOL/L (24-34); CREATININE 2.42 MG/DL (0.70-1.30); GFR AFRICAN AMERICAN 33 ML/MIN (>=60); GFR NON AFRICAN AMERICAN 29 ML/MIN (>=60); GLOBULIN 3.2 G/DL (2.5-4.1); GLUCOSE, SERUM 138 MG/DL (60-99); POTASSIUM, SERUM 4.3 MMOL/L (3.5-5.3); SGOT(AST) 31 U/L (5-40); SGPT(ALT) 28 U/L (5-65); SODIUM, SERUM 145 MMOL/L (135-148); TOTAL BILIRUBIN 0.7 MG/DL (0-1.2); TOTAL PROTEIN 5.9 G/DL (6.0-8.5); TROPONIN I 0.26 NG/ML (<0.05)
[2016-10-19 06:38] LABS: ALLENS TEST Pos; BE (BASE EXCESS) -2.1 MEQ/L (0 +/- 2.5); BIPAP 15/5 cm.H2O; CARBOXYHEMOGLOBIN 0.1 % (0-3); HCO3 (ACTUAL BICARBONATE) 24.3 MEQ/L (23-27); HEMOBLOGIN CONTENT 13.1 G/DL (14-18); INSTRUMENT SERIAL # 35151; METHEMOGLOBIN 0.4 % (0-3); O2 CONTENT 17.3 VOL% (18-24); PCO2 (CO2 TENSION) 48 MMHG (35-45); PO2 (O2 TENSION) 76 MMHG (79-93); SAMPLE Arterial; pH 7.32 (7.37-7.43)
[2016-10-19 09:09] LABS: ASCORBIC ACID (UR NOT ORDER) NEG (NEG); BILIRUBIN, URINE NEGATIVE (NEG); KETONE, URINE NEGATIVE (NEG); LEUKOCYTE ESTERASE(NOT OR NEG (NEG); WBC (NOT ORDERED) (RFLEX) 9 (0-5)
[2016-10-19 10:21] LABS: BE (BASE EXCESS) -4.1 MEQ/L (0 +/- 2.5); CARBOXYHEMOGLOBIN 0.2 % (0-3); HCO3 (ACTUAL BICARBONATE) 21.5 MEQ/L (23-27); HEMOBLOGIN CONTENT 13.1 G/DL (14-18); INSTRUMENT SERIAL # 35151; METHEMOGLOBIN 0.5 % (0-3); O2 CONTENT 17.7 VOL% (18-24); PCO2 (CO2 TENSION) 41 MMHG (35-45); PO2 (O2 TENSION) 93 MMHG (79-93); pH 7.34 (7.37-7.43)
[2016-10-19 10:22] LABS: BIPAP 15/5 cm.H2O; SAMPLE Arterial
[2016-10-19 16:46] LABS: BASOPHILS 0.2 %; BASOPHILS ABSOLUTE 0.02 10/3/uL (0.0-0.16); EOSINOPHILS 1.5 %; EOSINOPHILS ABSOLUTE 0.14 10/3/uL (0.0-0.53); HEMATOCRIT 35.6 % (40.0-51.0); IMMATURE GRANULOCYTES 0.4 %; IMMATURE GRANULOCYTES ABSOLUTE 0.04 10/3/uL (0.0-0.11); LYMPHOCYTES 9.2 %; LYMPHOCYTES ABSOLUTE 0.84 10/3/uL (0.67-4.30); MEAN CORPUS HGB CONC 33.7 g/dL (32.0-36.0); MEAN CORPUSCULAR HEMOGLOB 31.2 pg (26.0-34.0); MEAN CORPUSCULAR VOLUME 92.5 fL (80-100); MEAN PLATELET VOLUME 10.3 fL (9.2-13.0); MONOCYTES ABSOLUTE 0.64 10/3/uL (0.21-1.20); NEUTROPHILS 81.7 %; NEUTROPHILS ABSOLUTE 7.44 10/3/uL (2.02-8.40); PLATELET COUNT 205 10/3/uL (150-400); RBC DISTRIBUTION WIDTH 13.5 % (12.0-16.0); RED CELL COUNT 3.85 10/6/uL (4.7-6.1); WHITE BLOOD CELLS 9.1 10/3/uL (4.5-10.5)
[2016-10-19 16:51] LABS: ASCORBIC ACID (UR NOT ORDER) NEG (NEG); BILIRUBIN, URINE NEGATIVE (NEG); KETONE, URINE TRACE MG/DL (NEG); LEUKOCYTE ESTERASE(NOT OR SMALL (NEG); WBC (NOT ORDERED) (RFLEX) 96 (0-5)
[2016-10-19 16:53] LABS: MANUAL DIFF NO %
[2016-10-19 17:06] LABS: CHLORIDE, SERUM 111 MMOL/L (96-112); CO2 (CARBON DIOXIDE) 28 MMOL/L (24-34); FREE T4 1.27 NG/DL (0.76-1.46); GFR AFRICAN AMERICAN 56 ML/MIN (>=60); GFR NON AFRICAN AMERICAN 49 ML/MIN (>=60); GLUCOSE, SERUM 131 MG/DL (60-99); PHOSPHORUS, SERUM 1.8 MG/DL (2.5-4.5); SODIUM, SERUM 143 MMOL/L (135-148); ULTRASENSITIVE TSH 0.191 MCIU/ML (0.358-3.740)
[2016-10-19 17:07] LABS: BUN (BLOOD UREA NITROGEN) 30 MG/DL (6-23); CREATININE 1.56 MG/DL (0.70-1.30)
[2016-10-20 04:25] LABS: ALLENS TEST Pos; BE (BASE EXCESS) 3.9 MEQ/L (0 +/- 2.5); BIPAP 16/6 cm.H2O; CARBOXYHEMOGLOBIN 0.5 % (0-3); HCO3 (ACTUAL BICARBONATE) 28.3 MEQ/L (23-27); HEMOBLOGIN CONTENT 14.3 G/DL (14-18); INSTRUMENT SERIAL # 8083; OPERATOR ID 30013; PCO2 (CO2 TENSION) 42 MMHG (35-45); PO2 (O2 TENSION) 69 MMHG (79-93); SAMPLE Arterial; pH 7.45 (7.37-7.43)
[2016-10-20 05:04] LABS: BASOPHILS 0.1 %; BASOPHILS ABSOLUTE 0.01 10/3/uL (0.0-0.16); EOSINOPHILS 2.2 %; EOSINOPHILS ABSOLUTE 0.22 10/3/uL (0.0-0.53); HEMATOCRIT 34.3 % (40.0-51.0); HEMOGLOBIN 11.7 g/dL (13.6-17.8); IMMATURE GRANULOCYTES 0.4 %; IMMATURE GRANULOCYTES ABSOLUTE 0.04 10/3/uL (0.0-0.11); LYMPHOCYTES 6.3 %; LYMPHOCYTES ABSOLUTE 0.63 10/3/uL (0.67-4.30); MANUAL DIFF NO %; MEAN CORPUS HGB CONC 34.1 g/dL (32.0-36.0); MEAN CORPUSCULAR HEMOGLOB 31.4 pg (26.0-34.0); NEUTROPHILS ABSOLUTE 8.47 10/3/uL (2.02-8.40); PLATELET COUNT 219 10/3/uL (150-400); RBC DISTRIBUTION WIDTH 13.5 % (12.0-16.0); RED CELL COUNT 3.73 10/6/uL (4.7-6.1); WHITE BLOOD CELLS 10.1 10/3/uL (4.5-10.5)
[2016-10-20 05:27] LABS: CHLORIDE, SERUM 108 MMOL/L (96-112); CO2 (CARBON DIOXIDE) 30 MMOL/L (24-34); GFR AFRICAN AMERICAN 99 ML/MIN (>=60); GFR NON AFRICAN AMERICAN 85 ML/MIN (>=60); GLUCOSE, SERUM 130 MG/DL (60-99); PHOSPHORUS, SERUM 1.7 MG/DL (2.5-4.5); POTASSIUM, SERUM 3.8 MMOL/L (3.5-5.3); SODIUM, SERUM 141 MMOL/L (135-148)
[2016-10-20 05:28] LABS: BUN (BLOOD UREA NITROGEN) 17 MG/DL (6-23); CREATININE 0.98 MG/DL (0.70-1.30)
[2016-10-21 04:36] LABS: BASOPHILS 0.1 %; BASOPHILS ABSOLUTE 0.01 10/3/uL (0.0-0.16); EOSINOPHILS ABSOLUTE 0.25 10/3/uL (0.0-0.53); HEMATOCRIT 35.7 % (40.0-51.0); HEMOGLOBIN 12.2 g/dL (13.6-17.8); IMMATURE GRANULOCYTES 0.3 %; IMMATURE GRANULOCYTES ABSOLUTE 0.04 10/3/uL (0.0-0.11); LYMPHOCYTES 7.3 %; LYMPHOCYTES ABSOLUTE 0.89 10/3/uL (0.67-4.30); MEAN CORPUS HGB CONC 34.2 g/dL (32.0-36.0); MEAN CORPUSCULAR VOLUME 90.6 fL (80-100); MEAN PLATELET VOLUME 10.2 fL (9.2-13.0); MONOCYTES 6.6 %; MONOCYTES ABSOLUTE 0.81 10/3/uL (0.21-1.20); NEUTROPHILS 83.7 %; NEUTROPHILS ABSOLUTE 10.24 10/3/uL (2.02-8.40); PLATELET COUNT 275 10/3/uL (150-400); RBC DISTRIBUTION WIDTH 13.2 % (12.0-16.0); RED CELL COUNT 3.94 10/6/uL (4.7-6.1); WHITE BLOOD CELLS 12.2 10/3/uL (4.5-10.5)
[2016-10-21 04:52] LABS: MANUAL DIFF NO %
[2016-10-21 05:03] LABS: CALCIUM, SERUM 8.2 MG/DL (8.5-10.4); CHLORIDE, SERUM 104 MMOL/L (96-112); CO2 (CARBON DIOXIDE) 29 MMOL/L (24-34); CREATININE 0.83 MG/DL (0.70-1.30); GFR AFRICAN AMERICAN 113 ML/MIN (>=60); GFR NON AFRICAN AMERICAN 98 ML/MIN (>=60); GLUCOSE, SERUM 116 MG/DL (60-99); POTASSIUM, SERUM 3.3 MMOL/L (3.5-5.3); SODIUM, SERUM 142 MMOL/L (135-148)
[2016-10-21 05:05] LABS: BUN (BLOOD UREA NITROGEN) 11 MG/DL (6-23); PHOSPHORUS, SERUM 2.4 MG/DL (2.5-4.5)
[2016-10-21 05:41] LABS: PROCALCITONIN 3.57 ng/mL (<0.5)
[2016-10-22 04:20] LABS: BASOPHILS 0.2 %; BASOPHILS ABSOLUTE 0.02 10/3/uL (0.0-0.16); EOSINOPHILS 2.4 %; EOSINOPHILS ABSOLUTE 0.25 10/3/uL (0.0-0.53); HEMATOCRIT 36.8 % (40.0-51.0); HEMOGLOBIN 12.8 g/dL (13.6-17.8); IMMATURE GRANULOCYTES 0.7 %; IMMATURE GRANULOCYTES ABSOLUTE 0.07 10/3/uL (0.0-0.11); LYMPHOCYTES 10.9 %; LYMPHOCYTES ABSOLUTE 1.12 10/3/uL (0.67-4.30); MEAN CORPUS HGB CONC 34.8 g/dL (32.0-36.0); MEAN CORPUSCULAR HEMOGLOB 31.4 pg (26.0-34.0); MEAN CORPUSCULAR VOLUME 90.4 fL (80-100); MEAN PLATELET VOLUME 9.8 fL (9.2-13.0); MONOCYTES 10.9 %; MONOCYTES ABSOLUTE 1.12 10/3/uL (0.21-1.20); NEUTROPHILS 74.9 %; NEUTROPHILS ABSOLUTE 7.71 10/3/uL (2.02-8.40); PLATELET COUNT 286 10/3/uL (150-400); RBC DISTRIBUTION WIDTH 13.1 % (12.0-16.0); RED CELL COUNT 4.07 10/6/uL (4.7-6.1); WHITE BLOOD CELLS 10.3 10/3/uL (4.5-10.5)
[2016-10-22 04:22] LABS: MANUAL DIFF NO %
[2016-10-22 04:30] LABS: BUN (BLOOD UREA NITROGEN) 11 MG/DL (6-23); CALCIUM, SERUM 8.4 MG/DL (8.5-10.4); CHLORIDE, SERUM 105 MMOL/L (96-112); CO2 (CARBON DIOXIDE) 30 MMOL/L (24-34); GFR AFRICAN AMERICAN 109 ML/MIN (>=60); GFR NON AFRICAN AMERICAN 94 ML/MIN (>=60); GLUCOSE, SERUM 117 MG/DL (60-99); PHOSPHORUS, SERUM 3.1 MG/DL (2.5-4.5); POTASSIUM, SERUM 3.2 MMOL/L (3.5-5.3); SODIUM, SERUM 141 MMOL/L (135-148)
[2016-10-23 00:54] LABS: BASOPHILS 0.3 %; BASOPHILS ABSOLUTE 0.03 10/3/uL (0.0-0.16); EOSINOPHILS 1.8 %; HEMATOCRIT 37.9 % (40.0-51.0); HEMOGLOBIN 13.2 g/dL (13.6-17.8); IMMATURE GRANULOCYTES 0.8 %; IMMATURE GRANULOCYTES ABSOLUTE 0.09 10/3/uL (0.0-0.11); LYMPHOCYTES 15.7 %; LYMPHOCYTES ABSOLUTE 1.76 10/3/uL (0.67-4.30); MANUAL DIFF NO %; MEAN CORPUS HGB CONC 34.8 g/dL (32.0-36.0); MEAN CORPUSCULAR HEMOGLOB 31.4 pg (26.0-34.0); MEAN CORPUSCULAR VOLUME 90.2 fL (80-100); MEAN PLATELET VOLUME 9.8 fL (9.2-13.0); MONOCYTES 9.7 %; MONOCYTES ABSOLUTE 1.09 10/3/uL (0.21-1.20); NEUTROPHILS 71.7 %; NEUTROPHILS ABSOLUTE 8.04 10/3/uL (2.02-8.40); PLATELET COUNT 279 10/3/uL (150-400); RBC DISTRIBUTION WIDTH 12.9 % (12.0-16.0); WHITE BLOOD CELLS 11.2 10/3/uL (4.5-10.5)
[2016-10-23 01:06] LABS: BUN (BLOOD UREA NITROGEN) 13 MG/DL (6-23); CHLORIDE, SERUM 103 MMOL/L (96-112); CO2 (CARBON DIOXIDE) 30 MMOL/L (24-34); CREATININE 0.96 MG/DL (0.70-1.30); GFR AFRICAN AMERICAN 101 ML/MIN (>=60); GFR NON AFRICAN AMERICAN 87 ML/MIN (>=60); POTASSIUM, SERUM 3.9 MMOL/L (3.5-5.3); SODIUM, SERUM 141 MMOL/L (135-148); VANCOMYCIN TROUGH 10.5 MCG/ML (10.0-20.0)
[2016-10-23 01:08] LABS: GLUCOSE, SERUM 150 MG/DL (60-99); PHOSPHORUS, SERUM 4.4 MG/DL (2.5-4.5)
[2016-10-24 07:22] LABS: BASOPHILS 0.4 %; BASOPHILS ABSOLUTE 0.04 10/3/uL (0.0-0.16); EOSINOPHILS ABSOLUTE 0.33 10/3/uL (0.0-0.53); HEMATOCRIT 35.4 % (40.0-51.0); HEMOGLOBIN 12.3 g/dL (13.6-17.8); IMMATURE GRANULOCYTES 0.6 %; IMMATURE GRANULOCYTES ABSOLUTE 0.07 10/3/uL (0.0-0.11); LYMPHOCYTES 16.4 %; LYMPHOCYTES ABSOLUTE 1.79 10/3/uL (0.67-4.30); MEAN CORPUS HGB CONC 34.7 g/dL (32.0-36.0); MEAN CORPUSCULAR HEMOGLOB 31.2 pg (26.0-34.0); MEAN CORPUSCULAR VOLUME 89.8 fL (80-100); MONOCYTES 10.4 %; MONOCYTES ABSOLUTE 1.13 10/3/uL (0.21-1.20); NEUTROPHILS 69.2 %; NEUTROPHILS ABSOLUTE 7.54 10/3/uL (2.02-8.40); PLATELET COUNT 295 10/3/uL (150-400); RBC DISTRIBUTION WIDTH 13.1 % (12.0-16.0); RED CELL COUNT 3.94 10/6/uL (4.7-6.1); WHITE BLOOD CELLS 10.9 10/3/uL (4.5-10.5)
[2016-10-24 07:23] LABS: MANUAL DIFF NO %
[2016-10-24 07:26] LABS: CALCIUM, SERUM 8.3 MG/DL (8.5-10.4); CHLORIDE, SERUM 106 MMOL/L (96-112); POTASSIUM, SERUM 3.5 MMOL/L (3.5-5.3); SODIUM, SERUM 141 MMOL/L (135-148)
[2016-10-24 07:32] LABS: BUN (BLOOD UREA NITROGEN) 15 MG/DL (6-23); CO2 (CARBON DIOXIDE) 26 MMOL/L (24-34); CREATININE 0.87 MG/DL (0.70-1.30); GFR AFRICAN AMERICAN 111 ML/MIN (>=60); GFR NON AFRICAN AMERICAN 96 ML/MIN (>=60); GLUCOSE, SERUM 120 MG/DL (60-99); PHOSPHORUS, SERUM 3.4 MG/DL (2.5-4.5)
[2016-10-24 09:18] LABS: PROCALCITONIN 1.36 ng/mL (<0.5)
[2016-10-24 18:40] LABS: STONE COMPOSITION TWO DNR (())
[2016-10-25 06:26] LABS: BASOPHILS 0.2 %; BASOPHILS ABSOLUTE 0.02 10/3/uL (0.0-0.16); EOSINOPHILS 3.4 %; EOSINOPHILS ABSOLUTE 0.37 10/3/uL (0.0-0.53); HEMATOCRIT 34.1 % (40.0-51.0); HEMOGLOBIN 11.8 g/dL (13.6-17.8); IMMATURE GRANULOCYTES 0.7 %; IMMATURE GRANULOCYTES ABSOLUTE 0.08 10/3/uL (0.0-0.11); LYMPHOCYTES 16.7 %; LYMPHOCYTES ABSOLUTE 1.82 10/3/uL (0.67-4.30); MEAN CORPUS HGB CONC 34.6 g/dL (32.0-36.0); MEAN CORPUSCULAR HEMOGLOB 31.4 pg (26.0-34.0); MEAN CORPUSCULAR VOLUME 90.7 fL (80-100); MEAN PLATELET VOLUME 10.2 fL (9.2-13.0); MONOCYTES 7.3 %; NEUTROPHILS 71.7 %; PLATELET COUNT 279 10/3/uL (150-400); RBC DISTRIBUTION WIDTH 13.2 % (12.0-16.0); RED CELL COUNT 3.76 10/6/uL (4.7-6.1); WHITE BLOOD CELLS 10.9 10/3/uL (4.5-10.5)
[2016-10-25 06:31] LABS: MANUAL DIFF NO %
[2016-10-25 06:39] LABS: BUN (BLOOD UREA NITROGEN) 13 MG/DL (6-23); CALCIUM, SERUM 8.1 MG/DL (8.5-10.4); CHLORIDE, SERUM 108 MMOL/L (96-112); CO2 (CARBON DIOXIDE) 26 MMOL/L (24-34); CREATININE 0.91 MG/DL (0.70-1.30); GFR AFRICAN AMERICAN 108 ML/MIN (>=60); GFR NON AFRICAN AMERICAN 93 ML/MIN (>=60); GLUCOSE, SERUM 126 MG/DL (60-99); POTASSIUM, SERUM 3.5 MMOL/L (3.5-5.3); SODIUM, SERUM 141 MMOL/L (135-148)
[2016-10-26 05:45] LABS: BASOPHILS 0.2 %; BASOPHILS ABSOLUTE 0.02 10/3/uL (0.0-0.16); EOSINOPHILS 3.5 %; EOSINOPHILS ABSOLUTE 0.34 10/3/uL (0.0-0.53); HEMATOCRIT 34.6 % (40.0-51.0); HEMOGLOBIN 11.8 g/dL (13.6-17.8); IMMATURE GRANULOCYTES 0.5 %; IMMATURE GRANULOCYTES ABSOLUTE 0.05 10/3/uL (0.0-0.11); LYMPHOCYTES 17.6 %; LYMPHOCYTES ABSOLUTE 1.71 10/3/uL (0.67-4.30); MEAN CORPUS HGB CONC 34.1 g/dL (32.0-36.0); MEAN CORPUSCULAR HEMOGLOB 31.1 pg (26.0-34.0); MEAN CORPUSCULAR VOLUME 91.3 fL (80-100); MONOCYTES 5.9 %; MONOCYTES ABSOLUTE 0.57 10/3/uL (0.21-1.20); NEUTROPHILS 72.3 %; NEUTROPHILS ABSOLUTE 7.01 10/3/uL (2.02-8.40); PLATELET COUNT 285 10/3/uL (150-400); RBC DISTRIBUTION WIDTH 13.1 % (12.0-16.0); RED CELL COUNT 3.79 10/6/uL (4.7-6.1); WHITE BLOOD CELLS 9.7 10/3/uL (4.5-10.5)
[2016-10-26 05:51] LABS: MANUAL DIFF NO %
[2016-10-26 06:00] LABS: BUN (BLOOD UREA NITROGEN) 12 MG/DL (6-23); CALCIUM, SERUM 8.4 MG/DL (8.5-10.4); CHLORIDE, SERUM 107 MMOL/L (96-112); CO2 (CARBON DIOXIDE) 26 MMOL/L (24-34); CREATININE 0.99 MG/DL (0.70-1.30); GFR AFRICAN AMERICAN 98 ML/MIN (>=60); GFR NON AFRICAN AMERICAN 84 ML/MIN (>=60); GLUCOSE, SERUM 122 MG/DL (60-99); POTASSIUM, SERUM 3.6 MMOL/L (3.5-5.3); SODIUM, SERUM 141 MMOL/L (135-148)
[2016-10-26 06:47] LABS: PROCALCITONIN 0.66 ng/mL (<0.5)
[2016-10-27 06:33] LABS: BASOPHILS 0.2 %; BASOPHILS ABSOLUTE 0.02 10/3/uL (0.0-0.16); EOSINOPHILS 3.1 %; EOSINOPHILS ABSOLUTE 0.28 10/3/uL (0.0-0.53); HEMATOCRIT 34.8 % (40.0-51.0); IMMATURE GRANULOCYTES 0.4 %; IMMATURE GRANULOCYTES ABSOLUTE 0.04 10/3/uL (0.0-0.11); LYMPHOCYTES 15.6 %; LYMPHOCYTES ABSOLUTE 1.42 10/3/uL (0.67-4.30); MEAN CORPUS HGB CONC 34.5 g/dL (32.0-36.0); MEAN CORPUSCULAR HEMOGLOB 31.4 pg (26.0-34.0); MEAN CORPUSCULAR VOLUME 91.1 fL (80-100); MEAN PLATELET VOLUME 10.1 fL (9.2-13.0); MONOCYTES 7.4 %; MONOCYTES ABSOLUTE 0.67 10/3/uL (0.21-1.20); NEUTROPHILS 73.3 %; NEUTROPHILS ABSOLUTE 6.65 10/3/uL (2.02-8.40); PLATELET COUNT 306 10/3/uL (150-400); RBC DISTRIBUTION WIDTH 12.9 % (12.0-16.0); RED CELL COUNT 3.82 10/6/uL (4.7-6.1); WHITE BLOOD CELLS 9.1 10/3/uL (4.5-10.5)
[2016-10-27 06:36] LABS: MANUAL DIFF NO %
[2016-10-27 06:42] LABS: BUN (BLOOD UREA NITROGEN) 12 MG/DL (6-23); CALCIUM, SERUM 8.4 MG/DL (8.5-10.4); CHLORIDE, SERUM 107 MMOL/L (96-112); CO2 (CARBON DIOXIDE) 26 MMOL/L (24-34); CREATININE 1.03 MG/DL (0.70-1.30); GFR AFRICAN AMERICAN 93 ML/MIN (>=60); GFR NON AFRICAN AMERICAN 80 ML/MIN (>=60); GLUCOSE, SERUM 117 MG/DL (60-99); SODIUM, SERUM 138 MMOL/L (135-148)
[2016-10-28 05:58] LABS: BASOPHILS 0.2 %; BASOPHILS ABSOLUTE 0.02 10/3/uL (0.0-0.16); EOSINOPHILS 2.7 %; EOSINOPHILS ABSOLUTE 0.23 10/3/uL (0.0-0.53); HEMOGLOBIN 12.2 g/dL (13.6-17.8); IMMATURE GRANULOCYTES 0.2 %; IMMATURE GRANULOCYTES ABSOLUTE 0.02 10/3/uL (0.0-0.11); LYMPHOCYTES 18.8 %; LYMPHOCYTES ABSOLUTE 1.62 10/3/uL (0.67-4.30); MEAN CORPUS HGB CONC 34.9 g/dL (32.0-36.0); MEAN CORPUSCULAR HEMOGLOB 31.5 pg (26.0-34.0); MEAN CORPUSCULAR VOLUME 90.4 fL (80-100); MEAN PLATELET VOLUME 10.1 fL (9.2-13.0); MONOCYTES 6.2 %; MONOCYTES ABSOLUTE 0.53 10/3/uL (0.21-1.20); NEUTROPHILS 71.9 %; NEUTROPHILS ABSOLUTE 6.19 10/3/uL (2.02-8.40); PLATELET COUNT 363 10/3/uL (150-400); RBC DISTRIBUTION WIDTH 12.8 % (12.0-16.0); RED CELL COUNT 3.87 10/6/uL (4.7-6.1); WHITE BLOOD CELLS 8.6 10/3/uL (4.5-10.5)
[2016-10-28 06:03] LABS: MANUAL DIFF NO %
[2016-10-28 06:15] LABS: BUN (BLOOD UREA NITROGEN) 10 MG/DL (6-23); CALCIUM, SERUM 8.2 MG/DL (8.5-10.4); CHLORIDE, SERUM 109 MMOL/L (96-112); CO2 (CARBON DIOXIDE) 23 MMOL/L (24-34); CREATININE 0.93 MG/DL (0.70-1.30); GFR AFRICAN AMERICAN 105 ML/MIN (>=60); GFR NON AFRICAN AMERICAN 91 ML/MIN (>=60); GLUCOSE, SERUM 121 MG/DL (60-99); POTASSIUM, SERUM 3.6 MMOL/L (3.5-5.3); SODIUM, SERUM 141 MMOL/L (135-148)
[2016-10-28 07:02] LABS: PROCALCITONIN 0.32 ng/mL (<0.5)
[2016-10-29 04:19] LABS: BASOPHILS 0.4 %; BASOPHILS ABSOLUTE 0.04 10/3/uL (0.0-0.16); EOSINOPHILS ABSOLUTE 0.27 10/3/uL (0.0-0.53); HEMATOCRIT 35.7 % (40.0-51.0); HEMOGLOBIN 12.4 g/dL (13.6-17.8); IMMATURE GRANULOCYTES 0.2 %; IMMATURE GRANULOCYTES ABSOLUTE 0.02 10/3/uL (0.0-0.11); LYMPHOCYTES 20.9 %; LYMPHOCYTES ABSOLUTE 1.89 10/3/uL (0.67-4.30); MEAN CORPUS HGB CONC 34.7 g/dL (32.0-36.0); MEAN CORPUSCULAR HEMOGLOB 31.4 pg (26.0-34.0); MEAN CORPUSCULAR VOLUME 90.4 fL (80-100); MEAN PLATELET VOLUME 9.8 fL (9.2-13.0); MONOCYTES 6.9 %; MONOCYTES ABSOLUTE 0.62 10/3/uL (0.21-1.20); NEUTROPHILS 68.6 %; NEUTROPHILS ABSOLUTE 6.21 10/3/uL (2.02-8.40); PLATELET COUNT 401 10/3/uL (150-400); RBC DISTRIBUTION WIDTH 12.7 % (12.0-16.0); RED CELL COUNT 3.95 10/6/uL (4.7-6.1); WHITE BLOOD CELLS 9.1 10/3/uL (4.5-10.5)
[2016-10-29 04:25] LABS: MANUAL DIFF NO %
[2016-10-29 04:31] LABS: BUN (BLOOD UREA NITROGEN) 10 MG/DL (6-23); CALCIUM, SERUM 8.4 MG/DL (8.5-10.4); CHLORIDE, SERUM 109 MMOL/L (96-112); CO2 (CARBON DIOXIDE) 25 MMOL/L (24-34); CREATININE 0.82 MG/DL (0.70-1.30); GFR AFRICAN AMERICAN 114 ML/MIN (>=60); GFR NON AFRICAN AMERICAN 98 ML/MIN (>=60); POTASSIUM, SERUM 3.6 MMOL/L (3.5-5.3); SODIUM, SERUM 141 MMOL/L (135-148)
[2016-10-29 04:33] LABS: GLUCOSE, SERUM 95 MG/DL (60-99)
[2016-10-29] MEDS ORDERED: SPIRIVA INH (16:29)
[2016-10-29] MEDS ORDERED: VENTOLIN HFA INH (16:32)
== END 2016-10-29 18:30 | disposition home or self-care (01) | DRG 853 ==
LOC: ER 19:50 → 6NO 20:32 → MIC 10-19 13:31 → 7NO 10-23 16:48
PROVIDERS: Emergency Medicine; Hospitalist; Internal Medicine; Internal Medicine Critical Care Medicine; Internal Medicine Pulmonary Disease; Nurse Practitioner Family; Urology
PROC: 5A09357 Assistance with Respiratory Ventilation, Less than 24 Consecutive Hours, Continuous Positive Airway Pressure (ICD-10-PCS; 2016-10-18)
PROC: BT1D1ZZ Fluoroscopy of Right Kidney, Ureter and Bladder using Low Osmolar Contrast (ICD-10-PCS; 2016-10-19)
PROC: 0T768DZ Dilation of Right Ureter with Intraluminal Device, Via Natural or Artificial Opening Endoscopic (ICD-10-PCS; 2016-10-19)
PROC: 0TC08ZZ Extirpation of Matter from Right Kidney, Via Natural or Artificial Opening Endoscopic (ICD-10-PCS; principal; 2016-10-19 10:45)
DX: A41.9 Sepsis, unspecified organism (principal); R65.21 Severe sepsis with septic shock; J96.01 Acute respiratory failure with hypoxia; J96.02 Acute respiratory failure with hypercapnia; J18.9 Pneumonia, unspecified organism; N17.9 Acute kidney failure, unspecified; N13.2 Hydronephrosis with renal and ureteral calculous obstruction; E11.65 Type 2 diabetes mellitus with hyperglycemia; I10 Essential (primary) hypertension; J44.9 Chronic obstructive pulmonary disease, unspecified; N40.0 Benign prostatic hyperplasia without lower urinary tract symptoms; E87.6 Hypokalemia; K21.9 Gastro-esophageal reflux disease without esophagitis; Z85.828 Personal history of other malignant neoplasm of skin; Z87.891 Personal history of nicotine dependence; Z83.3 Family history of diabetes mellitus; Z82.3 Family history of stroke; Z86.73 Personal history of transient ischemic attack (TIA), and cerebral infarction without residual deficits; Z79.4 Long term (current) use of insulin; Z87.442 Personal history of urinary calculi; Z88.6 Allergy status to analgesic agent; Z79.899 Other long term (current) drug therapy
CPT/HCPCS: 36600; 70450; 71010; 74176; 74420; 80048; 80053; 80202; 80305; 80307; 81001; 82365; 82805; 82962; 83605; 83735; 83880; 84100; 84132; 84145; 84439; 84443; 84484; 85025; 85610; 85730; 87040; 87086; 87449; 87641; 93005; 94640; 94660; 96374; 99285; 99291; A9270-GY; C1758; C1769; C1894; C2617; C8929; J0330; J0692; J1170; J1940; J2250; J2370; J2405; J2543; J3010; J3370; J3475; P9047; Q9957; Q9967